=== PATIENT | male | born 1950 | race Caucasian/White ===

== ENCOUNTER 2023-12-10 08:50 | Day surgery (SDC) | payer MEDICARE, OTHER, SELFPAY ==
[2023-12-10] VITALS (14 sets, daily range): BP systolic 112–146; BP diastolic 75–94; BMI 28.5
[2023-12-10] MEDS: NSS 1000 IV ×2 (10:16→14:41)
--- NOTE | 2023-12-10 11:30 | ITS.CL.CATH ---
[employer] - Catheterization
Cardiac Catheterization
Procedure Report:
CARDIAC CATHETERIZATION REPORT
Date of Procedure: 12/10/2023
Referring: Wilman Amato M.D.
Indication: Aortic valve stenosis.
PROCEDURE:
1. Right heart catheterization.
2. Left heart catheterization.
3. Coronary angiography.
4. Aortic valve interrogation.
ACCESS:
6 [place] right radial artery.
5 [place] right antecubital vein.
CATHETERS:
1. 5 [place] balloon wedge.
2. 5 [place] JL 3.5.
3. 5 [place] JR4.
4. 6 [place] Dexter dual-lumen pigtail catheter.
HEMODYNAMIC DATA
Weight (kg): 89.8
AO (s/d/x mmHg): 125/83/102
LV (s/x mmHg): 170/15 (A wave to 27)
PCWP (a/v/x mmHg): 19/17/16
PA (s/d/x mmHg): 39/18/25
RV (s/x mmHg): 39/12
RA (a/v/x mmHg): 14//
SVC SvO2 (%): 80.6
PA SvO2 (%): 76.4
SaO2 (%): 96.3
Hbg (g/dL): 13.2
CO (L/min): 6.62
CI (L/min/m2): 3.18
TPG (mmHg): 9
PVR (Alonzo Units): 1.36
SVR (dynes*seconds*cm^-5): 1088
AVO2 Diff (Volume %): 3.57
AV gradient (x, mmHg): 32.3
AV area (cm2): 1.19
LEFT VENTRICULOGRAPHY: Not performed.
CORONARY ANGIOGRAPHY
Dominance: Right.
Left Main: Normal size, bifurcating vessel. There is no coronary artery disease.
LAD: Normal size vessel giving rise to 1 significant diagonal. There is no coronary artery disease.
Ramus: Congenitally absent.
Circumflex: Large size, nondominant vessel giving rise to 1 significant obtuse marginal then terminating as a large left posterolateral branch. There is no coronary artery disease.
RCA: Normal size, dominant vessel. There is no coronary artery disease. Of note, there is no posterolateral branch, the vessel terminates as the RPDA.
INTERVENTIONS
None.
Closure Device: Vascular band.
Radiation dose (mGy): 336.08
DAP (cm2.Gy): 23.1320
Fluoroscopy time (minutes): 4.1
Sedation time (minutes): 17
CONCLUSIONS:
1. Right dominant circulation with no coronary artery disease.
2. Moderate aortic valve stenosis. Aortic valve area 1.19 cm� with a mean gradient of 32.3 mmHg. Stroke-volume = 95 mL, stroke-volume index = 45 mL/m�.
3. Mildly elevated filling pressures (LVEDP = 15 mmHg, PCWP = 16 mmHg at 89.8 kg) with evidence of diastolic dysfunction (A wave to 27 mmHg).
RECOMMENDATIONS:
1. Expectant management after cardiac catheterization via right radial/right antecubital approach.
2. Limited weight bearing on the right wrist for one week.
3. Discussion with primary cardiology and TAVR team regarding continued surveillance versus aortic valve replacement due to symptoms.
4. Start low-dose furosemide for mildly elevated filling pressures.
Copy to: Wilman Amato M.D., Jennifer Valdez PA-C
Som Galindo DO, FACC, FACP
== END 2023-12-10 15:00 | disposition home or self-care (01) ==
LOC: CATH 08:50
PROVIDERS: ATTENDING PHYSICIAN Internal Medicine Cardiovascular Disease; FAMILY PHYSICIAN Physician Assistant Medical; OTHER PHYSICIAN Internal Medicine Cardiovascular Disease
DX: I35.0 Nonrheumatic aortic (valve) stenosis (principal); Z79.82 Long term (current) use of aspirin
CPT/HCPCS: 93460; C1894; Q9967

== ENCOUNTER → 2024-07-28 11:14 | Outpatient (REF) | payer MEDICARE, OTHER, SELFPAY | LOC: HWRCS 11:14 | PROVIDERS: ATTENDING PHYSICIAN Internal Medicine Cardiovascular Disease; FAMILY PHYSICIAN Physician Assistant Medical | DX: Q23.1 Congenital insufficiency of aortic valve (principal) | CPT/HCPCS: 93306 ==

== ENCOUNTER → 2025-01-21 13:51 | Outpatient (REF) | payer MEDICARE, OTHER, SELFPAY | LOC: HWRCS 13:51 | PROVIDERS: ATTENDING PHYSICIAN Student in an Organized Health Care Education/Training Program; FAMILY PHYSICIAN Physician Assistant Medical | DX: Q23.1 Congenital insufficiency of aortic valve (principal); I35.0 Nonrheumatic aortic (valve) stenosis; E78.2 Mixed hyperlipidemia | CPT/HCPCS: 93306 ==

== ENCOUNTER → 2025-02-10 12:39 | Outpatient (REF) | payer MEDICARE, OTHER, SELFPAY | LOC: RAD 12:39 | PROVIDERS: ATTENDING PHYSICIAN Thoracic Surgery (Cardiothoracic Vascular Surgery); FAMILY PHYSICIAN Physician Assistant Medical | DX: Z01.810 Encounter for preprocedural cardiovascular examination (principal) | CPT/HCPCS: 74174; 75572; Q9967 ==

== ENCOUNTER 2025-03-02 05:34 | Inpatient (IN) | payer MEDICARE, OTHER, SELFPAY ==
[2025-02-24 08:20] VITALS: BMI 30.2
[2025-02-24 08:53] LABS: % Basophils 0.7 % (0-2); % Eosinophils 5.6 % (0-6); % Immature Granulocytes 0.2 % (0-0.5); % Lymphocytes 19.7 % (20.5-51.1); % Monocytes 12.1 % (1.7-9.3); % Neutrophils 61.7 % (42.2-75.2); Absolute Eosinophils 0.2 10^3/uL (0-0.7); Absolute Lymphocytes 0.8 10^3/uL (1.2-3.4); Absolute Monocytes 0.5 10^3/uL (0.1-0.6); Absolute Neutrophils 2.5 10^3/uL (1.4-6.5); Hematocrit 35.4 % (39.0-52.0); Hemoglobin 11.7 g/dL (13.0-18.0); Mean Corp Hgb Conc. 33.1 g/dL (33.0-37.0); Mean Corpuscular Hgb 29.8 pg (27.0-31.0); Mean Corpuscular Volume 90.1 fL (80.0-94.0); Mean Platelet Volume 10.1 fL (7.4-10.4); Nucleated Red Blood Cells % 0 % (-); Platelet Count 240 10^3/uL (130-400); Red Blood Cell Count 3.93 10^6/uL (4.70-6.10); White Blood Cell Count 4.1 10^3/uL (4.8-10.8)
[2025-02-24 08:57] LABS: Urine Albumin Negative (Neg - Trace); Urine Bilirubin Negative (Negative); Urine Character Clear (Clear); Urine Color Yellow; Urine Glucose Negative (Negative); Urine Ketone Negative (Negative); Urine Leukocyte Negative (Negative); Urine Nitrite Negative (Negative); Urine Occult Blood 3+ (Negative); Urine Urobilinogen Negative (Neg - 1+)
[2025-02-24 09:12] LABS: Urine Bacteria Few (Negative); Urine Squamous Cell 0-2 /LPF (Few); Urine White Cell 0-2 /HPF (0-5)
[2025-02-24 09:12] LABS: APTT 31.2 Sec (23.4-35.0); INR 0.91; PT 12.8 Sec (11.4-14.6)
[2025-02-24 10:37] LABS: Glycohemoglobin (HgbA1c) 5.6 % (4.0-5.6)
[2025-02-24 11:37] LABS: ALT (SGPT) 13 U/L (0-50); AST (SGOT) 20 U/L (17-59); Albumin 4.1 g/dl (3.5-5.0); Alkaline Phosphatase 66 U/L (38-126); Blood Urea Nitrogen 20 mg/dl (9-20); Calcium 9.2 mg/dl (8.4-10.2); Carbon Dioxide 23 mmol/L (22-30); Chloride 106 mmol/L (98-107); Direct Bilirubin 0.2 mg/dl (0.0-0.4); Estimated Creatinine Clearance 69 ml/min; Glucose 97 mg/dl (70-99); Potassium 4.7 mmol/L (3.5-5.1); Sodium 139 mmol/L (135-145); Total Bilirubin 0.6 mg/dl (0.2-1.3); Total Protein 6.7 g/dl (6.3-8.2); eGFR > 60.00
--- NOTE | 2025-02-24 14:41 | CM ---
spoke to pt and in PAT's, we discussed preop AVR teaching including sternal and driving restrictions. he is prev indep, lives with his in a 1 story home with 1 step to enter. he has a walker at home to use if needed. he has the CT surgery
educ book, soap and instructions. he is agreeable to a f/u visit from the ct transitional care nurse after dc. cm role explained and all questions answered. plan is for dc to home when medically stable.
[2025-03-02] VITALS (16 sets, daily range): BP systolic 85–141; BP diastolic 67–92; BMI 28.4
--- NOTE | 2025-03-02 06:00 | PTCARENOTE ---
pt admitted into CVICU room 2264. pt confirmed 2 showers at home. NPO since midnight. pt clipped and prepped for CVOR. pre-op education provided. pre-op meds administered. pt science consultant to CVOR.
--- NOTE | 2025-03-02 06:02 | W.CVOR.SURPR ---
CVOR Surgeon Immed Pre Op
-
I have examined this patient prior to performance of the scheduled procedure.
The patient's condition is unchanged from the time of the dictated/written History and
Physical and the patient is able to undergo the scheduled procedure.
AVR (biological) +/- TONE CLip
[2025-03-02] MEDS: LOPRESSOR 25 MG PO (06:07)
[2025-03-02] MEDS: PROTONIX 40 MG PO (06:07)
[2025-03-02] MEDS: MAGNESIUM OXIDE 500 MG PO (06:07)
[2025-03-02] MEDS: BACTROBAN 2% OINTMENT 1 APPLIC NASAL ×2 (06:16→19:40)
[2025-03-02 07:31] LABS: ACT+ - POC 101 Seconds (82-134)
[2025-03-02 07:41] LABS: Urine Albumin 1+ (Neg - Trace); Urine Bilirubin Negative (Negative); Urine Character Clear (Clear); Urine Color Yellow; Urine Glucose Negative (Negative); Urine Ketone Negative (Negative); Urine Leukocyte Negative (Negative); Urine Nitrite Negative (Negative); Urine Occult Blood 3+ (Negative); Urine Urobilinogen Negative (Neg - 1+)
--- NOTE | 2025-03-02 08:12 | W.PN.CD ---
Today's Communication / Plan
-
SAVR + LAAE today.
Impression / Plan
-
Impression/Plan: 74 y/o male with a history bladder CA, HLD and bicuspid aortic valve with severe aortic valve stenosis admitted for elective SAVR.
#Bicuspid aortic valve with severe
-Chronic, progressive.
-Mean gradient 40 mmHg.
-Currently in surgery for bioprosthetic AVR.
-Anticipate routine post operative care.
-Wean vent to extubation.
-Wean pressors/inotropes for a MAP > 65 mmHg, CI > 1.8 L/min/m2.
#HLD
-Chronic, stable.
-Resume simvastatin when appropriate.
#SHIRA
-Chronic.
-<50% stenosis on the left.
Subjective/Interval History:
Currently undergoing surgery.
DATA:
Transthoracic Echocardiogram, 01/21/2025:
CONCLUSIONS
Normal biventricular size and systolic function without regional wall motion
abnormality. LVEF 65-70%.
Mild concentric left ventricular hypertrophy.
Severe aortic stenosis (peak/mean gradient 65/40 mmHg, TAISHA 0.9 cm2, DVI 0.26).
Compared to prior echocardiogram in July 2024, aortic stenosis has
progressed to severe.
Cardiac Catheterization, 12/10/2023:
CONCLUSIONS:
1. Right dominant circulation with no coronary artery disease.
2. Moderate aortic valve stenosis. Aortic valve area 1.19 cm� with a mean gradient of 32.3 mmHg. Stroke-volume = 95 mL, stroke-volume index = 45 mL/m�.
3. Mildly elevated filling pressures (LVEDP = 15 mmHg, PCWP = 16 mmHg at 89.8 kg) with evidence of diastolic dysfunction (A wave to 27 mmHg).
Physical Exam
Vital Signs/Labs
Vital Signs
Temp Pulse Resp BP Pulse Ox
36.6 C 66 16 141/92 97
03/02/25 06:00 03/02/25 06:07 03/02/25 06:00 03/02/25 06:07 03/02/25 06:00
02/28/25 03/01/25 03/02/25
11:59 11:59 11:59
Actual Weight 88.4 kg
02/24/25 08:30
02/24/25 08:30
PT 12.8 Sec (11.4-14.6) 02/24/25 08:30
INR 0.91 02/24/25 08:30
APTT 31.2 Sec (23.4-35.0) 02/24/25 08:30
Physical Exam
Constitutional: No acute distress and Comfortable
EENT: Other (ET tube in place.)
Neuro/Psych: Other (Intubated, sedated.)
Data Reviewed
-
Date of Service: March 02, 2025
Medical Decision Making: Reviewed Test Results and Test Interpretation
EKG: Tracing Personally Visualized and interpreted and Report Reviewed by me
Echo: Report Reviewed by me
X-Ray/CT/US/MRI/NUC/PET: Image Personally Visualized and interpreted and Report Reviewed by me
Medical Tests (PFT, Pathology etc): Image Personally Visualized and interpreted and Report Reviewed by me
Labs: Labs Reviewed by me
[2025-03-02 08:29] LABS: ACT+ - POC 649 Seconds (82-134)
[2025-03-02 08:46] LABS: B.E. - POC -0.4 mmol/L; Glucose - POC 101 mg/dl (70-99); HCO3 - POC 25 mmol/L (21-28); Hematocrit - POC 35 % PCV (42-52); Hemodilution- POC No; Ionized Calcium - POC 1.13 mmol/L (1.15-1.33); Lactate - POC 0.38 mmol/L (0.36-0.75); O2 Saturation %Calculated-POC 99.9 % (94-98); PCO2 - POC 42 mmHg (35-48); PO2 - POC 286 mmHg (83-108); POC Comment PRE; Sodium - POC 144 mmol/L (136-145); Specimen Type - POC Arterial; pH - POC 7.38 (7.35-7.45)
[2025-03-02 09:01] LABS: ACT+ - POC 625 Seconds (82-134)
[2025-03-02 09:28] LABS: ACT+ - POC 506 Seconds (82-134)
[2025-03-02 09:51] LABS: B.E. - POC 0.7 mmol/L; Glucose - POC 162 mg/dl (70-99); HCO3 - POC 26 mmol/L (21-28); Hematocrit - POC 30 % PCV (42-52); Hemodilution- POC Yes; Hemoglobin Calculated - POC 10.4; Ionized Calcium - POC 1.04 mmol/L (1.15-1.33); Lactate - POC 0.97 mmol/L (0.36-0.75); O2 Saturation %Calculated-POC 99.4 % (94-98); PCO2 - POC 43 mmHg (35-48); PO2 - POC 161 mmHg (83-108); POC Comment WARM; Potassium - POC 6.2 mmol/L (3.5-5.1); Sodium - POC 140 mmol/L (136-145); Specimen Type - POC Arterial; pH - POC 7.39 (7.35-7.45)
[2025-03-02 09:56] LABS: ACT+ - POC 107 Seconds (82-134)
--- NOTE | 2025-03-02 10:31 | W.PN.CT.SURG ---
CT Surgery Operative Note
-
CARDIAC SURGERY OPERATIVE REPORT
Preoperative Diagnosis: Aortic valve stenosis with bicuspid valve morphology and bulky heavy calcification
Postoperative Diagnosis: Same
Procedure(s) Performed:
1. Minimally invasive sternotomy down to the third intercostal space
2. Left atrial appendage exclusion with a 35 mm device
3. Surgical aortic valve replacement [29 mm bovine pericardial tissue valve]
4. Placement of temporary atrial ventricular pacing wires
5. Transesophageal echocardiography
Date of Surgery: 03/02/2025
Comorbidities:
1. Bicuspid aortic valve, type I morphology with left right effusion, bulky calcification and severe aortic valve stenosis
2. History of bladder cancer status postresection and chemotherapy
3. Gout
4. Hyperlipidemia
5. History of skin cancer status post Mohs surgery
6. Glaucoma
7. Sinus bradycardia
Attending Surgeon: Tremaine Ramirez MD, MS
Scrub and Circulating RNs: Brigette Simon, JOSUE, Michael Isaac RN
Assistants: Stephanie Abel PA-C, (wheelchair van operator first responder, exposure, retraction, suction, wound closure under my direction)
Anesthesiology: Flakito Nova MD and Manan Michael CRNA
Nurse Practitioner Home Assessments: Chapo Miller CCP
Anesthesia: GETA
EBL: per perfusion records
Products: None
CPB Time: 70 minutes
Aortic Cross Clamp Time: 54 minutes
Indication(s) for Procedures: This is a 74-year-old male with severe aortic valve stenosis. He has bicuspid valve morphology with a type I fusion of the left right coronary cusp. He has become more fatigued while doing exercise but overall is in
excellent physical condition. Given his relatively young age, bicuspid valve morphology with heavy and bulky calcification, a multidisciplinary team setting review came to the consensus that he be better served with a surgical aortic valve
replacement.
Aortic Valve Description: Bicuspid valve, type I, fusion of left and right coronary cusps, heavy bulky calcification of the body of the leaflets with some infiltration towards the left right commissure at the fused raphae, left and right coronary
ostia the normal anatomic positions, the right coronary ostia was slightly closer to the right none commissure, so the valve was oriented in order to move the surgical post more towards the noncoronary cusp.
Findings: His left ventricular ejection fraction preoperatively 65% with no significant regional wall motion abnormalities. Of note his cardiac index started in the case was quite low in the low ones as he was in sinus bradycardia in the 30s at
that time with a very elevated SVR. Following surgery his EF was the same at 65% with no new regional wall motion abnormalities. LV contractions were symmetrical and concentric. His aortic valve was replaced with a 29 mm bioprosthesis using a
total of 14 nonpledgeted 2 Ethibond sutures placed circumferentially secured with core knots. There is no paravalvular leak and the mean gradient across this new valve was 6 mmHg. His left atrial appendage was verified to be free of any thrombus
or debris preoperatively and clipped flush to the base. His cardiac index following cardiopulmonary bypass was over 2.0, I did not require any blood products, he did not require any inotropic support, he was in an AV paced rhythm postoperatively.
Specimen(s): Aortic valve leaflet.
Prosthesis:
1. 29 mm Willis Inspiris Resilia aortic valve, serial #[id number]
2. 35 mm left atrial appendage clip, serial #[id number]
3. Absorbable sealant, serial # [id number]
4. Single 8-hole X plate, 16mm screws x 8
Description of Procedure: The patient was taken to the operating room. Their identity and procedure to be performed were verified and they were positioned supine on the operating table. Induction via general anesthesia with endotracheal intubation
was performed and central venous access and arterial monitoring were inserted. A preoperative transesophageal echocardiogram was performed to assess cardiac function and valvular function. The patient was then prepped and draped from chin to feet in
a sterile fashion. A preoperative time-out was performed with all members of the team present. A upper midline chest incision was performed along with mini sternotomy to the 3rd intercostal space with a bone T-'d off. The innominate vein was
isolated. Full heparinization was given (a total of 50,000 units). We created a pericardial well. The aortic cannulation site was chosen where it was soft, pliable, and free of calcium. Common femoral vein access was done under ultrasound guidance
using Seldinger technique with a 5 [place] sheath. Venous cannulation was done under DAVI guidance. The arterial cannula was inserted in the distal ascending aorta. The arterial cannula line had an appropriate bounce and correlating pressures with
test dosing. Next, a root vent/antegrade cannula was inserted into the ascending aorta. The ACT was confirmed to be over 400 and retrograde autologous priming was performed before commencing cardiopulmonary bypass. An LV vent was placed via the
right superior pulmonary vein. The pulmonary artery was away from the aorta to facilitate a clamp site and aortotomy. The aortic cross-clamp was applied after decreasing the flow on the bypass and mean arterial pressure. A total of 1.2L
initial dose of antegrade Del-Nido cardioplegia solution was given and planned for re-dosing every 75 minutes as necessary. There was rapid electro-mechanical arrest of the heart at 270 cc of cardioplegia. The left ventricle was observed for
distention on echocardiogram and manual palpation. Cold slush was placed into the pericardial well and cooled to 34 degrees centigrade. Once the heart was fully arrested a sponge stick was used in order to rotate the heart medially and a suction
was used to retract the pulmonary artery. The left atrial appendage was clipped flush to the base. At this point while the LV was exposed, a bipolar pacing wire was placed on the lateral wall.
Carbon dioxide was used to flood the field. We manually identified the location of the right coronary take off. An aortotomy was made approximately 2cm above the sinotubular junction. The location of both left and right coronary vessels were
visualized in the root.The leaflets were excised and sent for pathological assessment. The annulus was debrided of any calcium being mindful of the annulus and membranous septum. The root and left ventricular outflow tract were thoroughly irrigated
to remove any debris. A total of 14 non-pledgeted 2-0 ethibond annular sutures were placed [id number] circumferentially. These were brought through the sewing cuff of the prosthetic valve which as then parachuted into place. The left and right
coronary ostia were visualized and were unobstructed by the valve. A Cor-Knot device was used to secure the annular sutures. The valve was inspected and was well seated. The aortotomy was approximated with 4-0 prolene in two layers. De-airing
maneuvers were performed with temporary atrial pacing wires placed at the SVC right atrial junction underneath the aorta. The patient was placed in a Trendelenburg position and flows on bypass were lowered. The aortic cross clamp was removed and
flows were slowly brought back up. The aortotomy appeared hemostatic. Transesophageal echocardiography revealed no paravalvular leak and appropriate prosthetic function. Once de-airing was satisfactory, the LV and root vents were removed. After
verifying acceptable parameters, we initiated weaning from cardiopulmonary bypass. Once we were off cardiopulmonary bypass, the venous cannula was clamped and removed. A test dose of protamine was administered and the patient was monitored for any
adverse reaction before resuming protamine. Once half of the protamine dose was delivered, pump suckers were turned off and the systolic blood pressure was lowered for aortic decannulation. The aortic cannula was removed and pursestrings were tied
down. All cannulation sites were oversewn with a 4-0 prolene. The aortotomy suture line was inspected and hemostasis was confirmed. Mediastinal hemostasis was obtained. One 19Fr Maxim drain was placed within the pericardium. The sternum was
approximated with 2 #7 stainless steel wires, 1 #7 double stainless steel wire, and a single 8-hole X-plate with 8 x 16mm screws. Fascia was approximated with #1 vicryl suture. The subcutaneous, dermis and epidermis were closed in layers in a
running fashion. The femoral venous access site was closed with a large buttressed pursestring. The skin wound was cleansed and dressed.
All instrument, sponge, and needle counts were confirmed to be correct x 2 at the end of the operation. The patient was transferred to the cardiac intensive care unit in critical but stable condition.
I, Dr. Tremaine Ramirez, was present, scrubbed for, and performed all critical elements of this procedure.
Tremaine Ramirez MD, MS
Cardiothoracic Surgeon
[facility]
This operative dictation was created using the [employer] dictation system. Please excuse any grammatical, typographical, or 'sound alike' errors
[2025-03-02 10:32] LABS: B.E. - POC 2.2 mmol/L; Glucose - POC 98 mg/dl (70-99); HCO3 - POC 27 mmol/L (21-28); Hematocrit - POC 27 % PCV (42-52); Hemodilution- POC Yes; Hemoglobin Calculated - POC 9.3; Ionized Calcium - POC 1.22 mmol/L (1.15-1.33); Lactate - POC 1.06 mmol/L (0.36-0.75); O2 Saturation %Calculated-POC 99.9 % (94-98); PCO2 - POC 39 mmHg (35-48); PO2 - POC 302 mmHg (83-108); POC Comment POST; Potassium - POC 4.1 mmol/L (3.5-5.1); Sodium - POC 143 mmol/L (136-145); Specimen Type - POC Arterial; pH - POC 7.44 (7.35-7.45)
[2025-03-02] MEDS: NEURONTIN PO ×2 (10:43→16:35)
[2025-03-02 10:57] LABS: Glucose - Point of Care 76 mg/dl (70-99)
--- NOTE | 2025-03-02 11:09 | CM ---
Chart reviewed. Patient is in the OR today. Patient is independent of ADLS, lives with his in a 1 STH, 1STE, has a RW at home if needed. Plan is for the patient to return home with CT Transitional RN. CM to follow
[2025-03-02] MEDS: NSS 500 IV (11:18)
[2025-03-02] MEDS: ANCEF 10 IV ×2 (11:18)
[2025-03-02 11:21] LABS: Hematocrit 30.9 % (39.0-52.0); Hemoglobin 10.4 g/dL (13.0-18.0); INR 1.32; PT 16.9 Sec (11.4-14.6); Platelet Count 154 10^3/uL (130-400)
[2025-03-02 11:22] LABS: APTT 33.5 Sec (23.4-35.0)
[2025-03-02 11:30] LABS: Blood Urea Nitrogen 20 mg/dl (9-20); Estimated Creatinine Clearance 62 ml/min; Glucose 67 mg/dl (70-99); Magnesium 2.9 mg/dl (1.6-2.3)
[2025-03-02 11:35] LABS: Mixed Venous O2 Saturation 78.4 %
[2025-03-02 11:38] LABS: B.E. 1.3 mmol/L; HCO3 25.9 mmol/L (21-28); Ionized Calcium 1.23 mMOL/L (1.15-1.33); O2 Saturation % 99.1 % (94-98); PCO2 40 mmHg (35-48); PO2 131 mmHg (83-108); Potassium 4.2 mMOL/L (3.5-5.1); Sodium 138 mMOL/L (136-145); pH 7.42 (7.35-7.45)
[2025-03-02 11:44] LABS: Glucose - Point of Care 113 mg/dl (70-99)
--- NOTE | 2025-03-02 11:49 | PTCARENOTE ---
Patient received from CVOR at 1050; Sedated and intubated; 100% AV paced on monitor; VSS; Epicardial AV wires present with temporary pacemaker settings DDI 74/10/0.8 74/10/0.8; +2 DP and radial pulses present; Lungs diminished at bases; ETT size 8
positioned and secured at 22 cm right lip; Ventilator settings SIMV 14/550/5/5 FiO2 40%; CTx1 to -20 cm wall suction draining bloody drainage - no air leak, tidaling, or crepitus noted; Hypoactive BS; Saleh catheter in place draining clear, yellow
urine; Sternal incision glued, approximated, and PERICO - CDI, right groin puncture site covered with gauze and tegaderm - CDI; Right radial A-line in place, Michelle Lamberto floated to 45 cm in RIJ Cordis - all lines zeroed and leveled; #18 PIV present in
right hand; Insulin, precedex, and cardene infusing - see nursing flowsheets for further details; see nursing documentation for further details.
CO: 3.95
CI: 1.94
SVR: 1,255
[2025-03-02] MEDS: DILAUDID 0.25 MG IV (12:41)
[2025-03-02 12:49] LABS: Glucose - Point of Care 137 mg/dl (70-99)
[2025-03-02 12:50] LABS: B.E. - POC 1.8 mmol/L; Glucose - POC 122 mg/dl (70-99); HCO3 - POC 27 mmol/L (21-28); Hematocrit - POC 29 % PCV (42-52); Hemodilution- POC Yes; Ionized Calcium - POC 0.99 mmol/L (1.15-1.33); Lactate - POC < 0.30 mmol/L (0.36-0.75); PCO2 - POC 47 mmHg (35-48); PO2 - POC 422 mmHg (83-108); POC Comment CPB; Potassium - POC 5.3 mmol/L (3.5-5.1); Sodium - POC 139 mmol/L (136-145); Specimen Type - POC Arterial; pH - POC 7.38 (7.35-7.45)
--- NOTE | 2025-03-02 13:10 | PTCARENOTE ---
CPAP trial attempted at 1235 with RT at bedside but quickly returned to SIMV on ventilator due to high respiration rate and low tidal volume; CVNP Radha C. notified and aware - Precedex infusion increased and IV Dilaudid 0.25 given; Chest beating
strongly with each heart beat - CVNP Radha C. notified - most likely due to epicardial pacing and settings unchanged for now; Respiration rate still unchanged after medication changes - ABG ordered and awaiting results
[2025-03-02 13:13] LABS: B.E. 0.7 mmol/L; HCO3 24.2 mmol/L (21-28); Ionized Calcium 1.17 mMOL/L (1.15-1.33); O2 Saturation % 99.8 % (94-98); PCO2 34 mmHg (35-48); PO2 140 mmHg (83-108); Potassium 4.6 mMOL/L (3.5-5.1); Sodium 137 mMOL/L (136-145); pH 7.46 (7.35-7.45)
[2025-03-02] MEDS: CALCIUM GLUCONATE 100 IV (13:47)
--- NOTE | 2025-03-02 13:54 | PTCARENOTE ---
Temporary pacemaker settings changed to AAI 74/6.0/0.8 by DEYSI Santoro after temporary pacemaker noticed to inappropriately initiate breaths on ventilator by V-wire; EKG taken at bedside while pacemaker off while adjusting temporary pacemaker
settings; Respiration rate now appropriate at 14 and patient denies pain at this time
--- NOTE | 2025-03-02 13:58 | CON.INTV ---
Consultation
Consultation Request
Date/Time Consultation Requested: 03/02/2025
Date/Time Consultation Performed: 03/02/2025
Requesting Provider: Tremaine Ramirez
Performing Provider: Raul Harding
Reason for Consultation: Post AVR
Medical History
-
Chief Complaint: Worsening aortic valve stenosis
History of Present Illness:
Patient is a very pleasant 74-year-old gentleman with known history of aortic stenosis. He has been following up with cardiology office for worsening shortness of breath. He had a follow-up echocardiogram in January 2025 which showed worsening
aortic stenosis with peak/mean gradient of 65 x 40. Left ventricle ejection fraction was noted to be normal. Cardiac cath in the past had been negative for any obstructive coronary artery disease. In view of symptomatic worsening stenosis,
patient was referred to CT surgery service. Patient was recommended to have aortic valve replacement and was electively admitted for the above surgery. Postsurgery, he was brought to CVICU for further monitoring. Chinese Instructor service was consulted
for further input.
Past medical history.
History of bladder cancer, status post cystoscopy, and tumor resection as well as intravesical chemotherapy
History of bicuspid aortic valve with aortic valve stenosis
History of gout
History of basal cell carcinoma skin, s/p Mohs procedure
Known history of pulmonary nodules
Family history.
Patient's sister had melanoma Brother had history of lung cancer.
Social history.
Patient does not smoke. Reports a very brief exposure to smoking remotely during college times. No reported history of vaping or marijuana use.
Allergies / Home Medications
Allergies
Allergy/AdvReac Type Severity Reaction Status Date / Time
No Known Allergies Allergy Unverified 02/22/25 09:52
Home Medications
�Medication �Instructions �Recorded �Confirmed �Last Taken �Type
aspirin 81 mg chewable tablet 81 mg PO DAILY 12/10/23 03/02/25 03/01/25 08:00 History
bimatoprost 0.01 % eye drops 1 drp BOTH EYES HS 12/10/23 03/02/2525 20:00 History
(Lumigan)
indomethacin 50 mg capsule 50 mg PO TID PRN Gout Flare 12/10/23 03/02/25 02/28/25 History
simvastatin 20 mg tablet 20 mg PO HS 12/10/23 03/02/25 03/01/25 20:00 History
Review of Systems
-
Unable to Obtain full review of systems at this time due to: Patient Intubation and Other (Denies any difficulty breathing, not noted to be in any distress)
Vitals / Labs / Diagnostic Testing
Vital Signs
Temp Pulse Resp BP Pulse Ox
98.0 F 74 16 103/77 99
03/02/25 13:00 03/02/25 13:05 03/02/25 13:05 03/02/25 13:00 03/02/25 13:05
Lab Data
03/02/25 10:49
Laboratory Results
03/02/25 03/02/25
10:49 12:59
PT 16.9 H
INR 1.32
APTT 33.5
pH 7.42 7.46 H
pCO2 40 34 L
pO2 131 H 140 H
HCO3 25.9 24.2
O2 Delivery Level Not Reportable Not Reportable
Diagnostic Testing:
Physical Exam
-
HEENT: Normocephalic
Cardiovascular: S1/S2
Respiratory: Clear and Non-Labored Respirations
GI: Soft and Non Distended
Neurology: Awake and Alert
Skin: Warm
General: Comfortable
Assessment
-
74-year-old male patient with bicuspid aortic valve with severe aortic valve stenosis, s/p surgical aortic valve replacement (bovine pericardial tissue valve) with left atrial appendage exclusion, POD #0
Titrate off pressors per protocol. Currently Levophed @2
ECHO reviewed, normal EF
PA catheter readings reviewed
Management of chest tubes per primary service
Off Precedex now, awake, alert, follows commands, tolerating PSV/CPAP 5/5 well, Pulling tidal volume of 472 ml, 99% O2 sat at FiO2 40%
Anticipate extubation soon
7.46, 34, 140
Extubate per protocol
Maintain supplement oxygen as needed
No prior history of pulmonary disease other than nodules (stable since 2015)
Can add nebulizers if needed
Aspiration precautions
Encouraged incentive spirometry, OOB/ambulation/early mobility
Advance diet as tolerated following extubation
GI prophylaxis: on Protonix
Monitor critical I/O's
F/u Hb/platelets postoperatively
Can transfuse if indicated for Hb <7, plt <50 in surgical patients
DVT prophylaxis including SCDs
Insulin protocol initiated and ongoing, continue per protocol
Transition to SQ/off as indicated per team
Other co-morbidities:
-Pulmonary nodules (2-5 mm), Unchanged since CT Chest in 2016, suggestive of benign etiology. No further work up needed with stability over 7 years
-Bladder cancer s/p TUR of bladder tumor, intravesical chemotherapy (2012)
-Gout
-H/o Basal cell cancer, skin
Critical Care time 63 mins -- The patient is admitted for acute critical illness for the treatment of vital organ failure and/or prevention of further life-threatening conditions. Total care includes time spent in review of history, physical exam,
medications, hemodynamic/ventilator parameters, laboratory data, imaging and discussion with house staff, pharmacy, respiratory therapy, line mover, and nursing.
Data:
DAVI 02/2025: Normal left ventricular size and systolic function with concentric hypertrophy.
LVEF is 60-65% by visual inspection. No regional wall motion abnormalities.
Normal right ventricular systolic function.
Bicuspid aortic valve with severe stenosis and trace/mild regurgitation.
Trace mitral regurgitation.
Trace tricuspid regurgitation.
Normal left atrial appendage.
Normal size aorta and aortic root.
2-D ECHO 01/2025: Normal biventricular size and systolic function without regional wall motion
abnormality. LVEF 65-70%.
Mild concentric left ventricular hypertrophy.
Severe aortic stenosis (peak/mean gradient 65/40 mmHg, TAISHA 0.9 cm2, DVI 0.26).
Compared to prior echocardiogram in July 2024, aortic stenosis has
progressed to severe.
RHC and LHC 11/2024: Mean PA pressure 25, PVR 1.36, pulmonary capillary wedge pressure 16, aortic valve area of 1.19 cm� with mean gradient of 32.3.
- Right dominant circulation with no coronary artery disease
CT Chest 11/2023: Stable pulmonary nodules since 2015, suspect enign
CT Chest 10/2017: 4 mm right middle lobe nodule (image 38 series 2)
4 mm subpleural right lower lobe nodule (image 42)
2 mm subpleural left lower lobe nodule (image 37)
5 mm subpleural left lower lobe nodule (image 47). Nodules unchanged since 2016, suggestive of benign etiology
[2025-03-02 14:04] LABS: Glucose - Point of Care 150 mg/dl (70-99)
[2025-03-02] MEDS: TYLENOL PO (14:07)
[2025-03-02] MEDS: LR 250 ML IV ×3 (14:32→17:14)
--- NOTE | 2025-03-02 14:50 | PTCARENOTE ---
RT in room and patient placed on CPAP trial. EPOC ABG due at 1520
[2025-03-02 15:05] LABS: Glucose - Point of Care 160 mg/dl (70-99)
[2025-03-02 15:27] LABS: Blood Urea Nitrogen - POC 20 mg/dl (3-120); Chloride - POC 108 mmol/L (96-111); Creatinine - POC 1.14 mg/dl (0.3-1.0); Glucose - POC 134 mg/dl (70-99); HCO3 - POC 25 mmol/L (21-28); Hematocrit - POC 35 % PCV (42-52); Hemodilution- POC Yes; Hemoglobin Calculated - POC 11.8; Ionized Calcium - POC 1.29 mmol/L (1.15-1.33); Lactate - POC 1.47 mmol/L (0.36-0.75); O2 Saturation %Calculated-POC 99.6 % (94-98); PCO2 - POC 39 mmHg (35-48); PO2 - POC 172 mmHg (83-108); Potassium - POC 4.4 mmol/L (3.5-5.1); Sodium - POC 145 mmol/L (136-145); Specimen Type - POC Arterial; pH - POC 7.42 (7.35-7.45)
--- NOTE | 2025-03-02 15:36 | PTCARENOTE ---
EPOC ABG reviewed with DEYSI Santoro; RT at bedside; Patient extubated at 1530 and placed on 6L NC; IS 1500 ml
--- NOTE | 2025-03-02 15:45 | RESPNOTE ---
Respiratory: patient extubated without incident, no stridor no wheeze.
[2025-03-02 15:59] LABS: Glucose - Point of Care 133 mg/dl (70-99)
[2025-03-02 16:05] LABS: Hematocrit 33.5 % (39.0-52.0); Hemoglobin 11.1 g/dL (13.0-18.0); Platelet Count 193 10^3/uL (130-400)
[2025-03-02] MEDS: OFIRMEV 100 IV (16:32)
[2025-03-02] MEDS: PACERONE PO ×3 (16:35→21:08)
[2025-03-02] MEDS: LOW STRENGTH ASPIRIN 81 MG PO (16:37)
[2025-03-02 18:04] LABS: Glucose - Point of Care 110 mg/dl (70-99)
[2025-03-02] MEDS: ANCEF 5 IV (18:05)
[2025-03-02] MEDS: ALBUMIN 5% 250 IV (18:38)
[2025-03-02 18:44] LABS: B.E. -0.5 mmol/L; HCO3 24.2 mmol/L (21-28); Ionized Calcium 1.23 mMOL/L (1.15-1.33); O2 Saturation % 99.7 % (94-98); PCO2 39 mmHg (35-48); PO2 179 mmHg (83-108); Potassium 4.7 mMOL/L (3.5-5.1); Sodium 137 mMOL/L (136-145)
[2025-03-02 18:45] LABS: O2 Therapy nasal cannula
[2025-03-02] MEDS: SENOKOT-S 1 TABLET PO (20:06)
[2025-03-02 20:10] LABS: Glucose - Point of Care 108 mg/dl (70-99)
[2025-03-02] MEDS: XALATAN OPHTHALMIC SOLUTION 1 DROP BOTH EYES (21:01)
[2025-03-02] MEDS: NEURONTIN 100 MG PO (21:01)
[2025-03-02] MEDS: LIPITOR 10 MG PO (21:02)
--- NOTE | 2025-03-02 21:42 | PTCARENOTE ---
Patient tolerated clear liquid diet; PO Amiodarone held as per CVPA Tsillina; Levo infusion being weaned - see nursing flowsheets for further details
[2025-03-02] MEDS: TYLENOL 1000 MG PO (21:58)
[2025-03-02] MEDS: LR 500 IV (21:59)
[2025-03-02 22:03] LABS: Glucose - Point of Care 121 mg/dl (70-99)
--- NOTE | 2025-03-02 23:15 | PTCARENOTE ---
Assumed care of the patient at 2300. Patient in bed, AOx3, c/o mild sternal pain. 100% A-paced on the monitor, rate 74, see work list for pacer settings, heart tones audible, rub noted, + pulses, no edema, pressures stable on Levophed. On 2LNC
satting 98%, CTx1 present to -20 cm wall suction with sanguineous drainage in the chamber, no air leak, tidaling, or crepitus noted, lungs dim at the bases. Hypoactive BS, patient states he is passing gas, tolerating clear liquid diet with no
nausea. Saleh catheter in place draining clear, yellow urine. MS chest incision CDI BARIATRIC PROGRAM COORDINATOR; R groin dressing with gauze and Tegaderm CDI no drainage noted. RIJ Michelle Lamberto catheter @[address], RIJ cordis, R radial arterial line, PIVx1. All lines
leveled and zeroed. On Levo and insulin. See nursing work list for additional intervention details.
[2025-03-03] VITALS (27 sets, daily range): BP systolic 80–112; BP diastolic 53–84; PULSE 81; O2SAT 93; BMI 29.9
[2025-03-03 00:07] LABS: Glucose - Point of Care 103 mg/dl (70-99)
[2025-03-03 01:56] LABS: Glucose - Point of Care 97 mg/dl (70-99)
[2025-03-03] MEDS: ROXICODONE 5 MG PO ×3 (01:56→15:14)
[2025-03-03] MEDS: ANCEF 5 IV ×2 (01:56→10:00)
--- NOTE | 2025-03-03 03:00 | PTCARENOTE ---
VSS on Levophed titrated per protocol, pain management. Patient sleeping between care.
[2025-03-03 04:01] LABS: Glucose - Point of Care 101 mg/dl (70-99)
[2025-03-03 04:19] LABS: Mixed Venous O2 Saturation 62.5 %
[2025-03-03 04:37] LABS: Hematocrit 30.4 % (39.0-52.0); Hemoglobin 9.9 g/dL (13.0-18.0); Mean Corp Hgb Conc. 32.6 g/dL (33.0-37.0); Mean Corpuscular Hgb 29.3 pg (27.0-31.0); Mean Corpuscular Volume 89.9 fL (80.0-94.0); Mean Platelet Volume 10.9 fL (7.4-10.4); Platelet Count 190 10^3/uL (130-400); Red Blood Cell Count 3.38 10^6/uL (4.70-6.10); Red Cell Dist. Width 13.2 % (11.5-14.5); White Blood Cell Count 14.3 10^3/uL (4.8-10.8)
[2025-03-03 04:57] LABS: Blood Urea Nitrogen 24 mg/dl (9-20); Calcium 8.4 mg/dl (8.4-10.2); Carbon Dioxide 21 mmol/L (22-30); Chloride 106 mmol/L (98-107); Estimated Creatinine Clearance 62 ml/min; Glucose 111 mg/dl (70-99); Magnesium 2.3 mg/dl (1.6-2.3); Potassium 4.9 mmol/L (3.5-5.1); Sodium 138 mmol/L (135-145); eGFR > 60.00
--- NOTE | 2025-03-03 05:36 | W.PN.CT ---
Today's Communication / Plan
-
-pod #1
-no issues overnight
-keeping BP 90-110 overnight
-mvO2 62.5. CI 2.08, CO 4.24, SVR 1207, Drips: LR @ 50 ml/hr, Insulin, Levo 1
-CT outputs: 2 meds 60/235 in 12/24 hrs
-monitor rhythm - was AV paced itraop and sinus merry 49 postop (preop ECG with SB 50, not on AV-blocking meds at home). Currently, in nsr 70s
-wean off drips, then deline
-d/c insulin
-current meds (ASA, Lipitor, Amio, Protonix). Holding BB while on Levo
-encourage IS, OOB
Assessment / Plan
-
- s/p Minimally invasive sternotomy with Surgical aortic valve replacement [29 mm bovine pericardial tissue valve Inspiris Resilia]; LAAE [35 mm clip] by Dr. Ramirez on 03/02/25, pod #1
- intraop DAVI: LVEF preop and postop 65% with no wma.
- he was in an AV paced rhythm postoperatively, then sinus merry high 40s in CVICU
- Bicuspid aortic valve, type I morphology with left right effusion, bulky calcification and severe aortic valve stenosis
- History of bladder cancer- status postresection and chemotherapy 11/2012
- Pulmonary nodules
- Gout
- Hyperlipidemia
- History of skin cancer status post Mohs surgery
- Glaucoma
- Hard of hearing, wears hearing aides b/l
- Preop anemia - Hg 11.7
- Sinus bradycardia 50 bpm preop (not on AVN blocking meds at home)
- Acute on chronic postop blood loss anemia
- Acute postop atelectasis
- Acute postop hypovolemia with subsequnet hypervolemia
Discussed patient care with: Nursing and Care Team
Subjective
-
Date of Service: March 03, 2025
Objective Data
-
PT 16.9 Sec (11.4-14.6) H 03/02/25 10:49
INR 1.32 03/02/25 10:49
APTT 33.5 Sec (23.4-35.0) 03/02/25 10:49
Vital Signs
Vital Signs
Temp Pulse Resp BP Pulse Ox
97.5 F 74 11 95/76 98
03/03/25 00:00 03/03/25 00:12 03/03/25 00:12 03/03/25 00:00 03/03/25 00:12
CT Intake/Output/Weight
03/02/25 03/02/25 03/03/25
06:59 18:59 06:59
Intake Total 1709.6 / 2611.0 901.4 / 2611.0
Output Total 1685 / 1920 235 / 1920
Balance 24.6 / 691.0 666.4 / 691.0
SaO2: 98
Physical Exam
-
General: Awake and AOx3
Cardiovascular: Regular rate & rhythm, No Murmurs and Rub
Respiratory: Decreased Breath Sounds
Sternum: Stable
Incision: Clean, Dry and Intact
Extremities: No Edema (2+ DPs b/l)
Abdomen: soft, nontender, nondistended, + decreased bowel sounds
Data Reviewed
-
Lab Results: Results Reviewed
Medications: Active Meds Reviewed
Chest X-Ray: Report Reviewed and Image Reviewed
ECG: Report Reviewed and Image Reviewed
[2025-03-03] MEDS: TYLENOL 1000 MG PO ×3 (05:46→21:33)
[2025-03-03] MEDS: LR 500 IV ×2 (05:47→21:35)
[2025-03-03 06:08] LABS: Glucose - Point of Care 110 mg/dl (70-99)
--- NOTE | 2025-03-03 06:22 | PTCARENOTE ---
Patient remains lined per CVPA. Kept in bed due to low pressures and weighed via bed scale. Saleh removed per order, catheter intact, patient tolerated procedure. at bedside, no questions indicated at this time.
[2025-03-03] MEDS: DILAUDID 0.5 MG IV (07:13)
[2025-03-03] MEDS: BACTROBAN 2% OINTMENT 1 APPLIC NASAL ×2 (07:54→20:20)
--- NOTE | 2025-03-03 08:00 | PTCARENOTE ---
resumed care of patient from previous RN. AAOx3. Resting comfortably in bed at time of assessment. NSR on monitor. 97% 2L nc. Will wean as tolerated. CTx1 to -20 wall suction. draining minimal serosang fluid. dressing changed. IS 1500. Delined and
OOB with assist from cardiac rehab. Light headed but tolerated. tolerating diet. DTV. All surgical sites c/d/i. R IJ cordis.LR infusing @ 50/hr. insulin per glycemic protocol. will continue to monitor.
--- NOTE | 2025-03-03 08:11 | W.PN.ANS.POP ---
Anesthesia Post Operative
- Anesthesia Post Op Note
Vital Signs Stable-See Nursing Note: Yes
Airway Patent: Yes
Adequate Pain Control: Yes
Change in Mental Status: No
Current Postoperative Nausea & Vomiting: No
Anesthesia Complications: No
General Anesthetic Recall: No
Unplanned Admission: No
Post Op Hydration Adequate: Yes
- -
Pt awake and alert with no anesthesia related c/o at time of post op visit. VSS, no N/V
--- NOTE | 2025-03-03 08:48 | W.PN.CD ---
Today's Communication / Plan
-
Continue routine postop care
Wean pressors as tolerated
We will continue to follow
Impression / Plan
-
Impression/Plan: 74 y/o male with a history bladder CA, HLD and bicuspid aortic valve with severe aortic valve stenosis admitted for elective SAVR. S/p Minimally invasive sternotomy with Surgical aortic valve replacement [29 mm bovine pericardial
tissue valve Inspiris Resilia]; LAAE [35 mm clip] by Dr. Ramirez on 03/02/25
#Bicuspid aortic valve with severe
-S/p Minimally invasive sternotomy with Surgical aortic valve replacement [29 mm bovine pericardial tissue valve Inspiris Resilia]; LAAE [35 mm clip] by Dr. Ramirez on 03/02/25
-Postop DAVI with AVR mean gradient 3mm Hg, LAAA no longer visible with no color flow
-Continue routine post operative care.
-Amio for AF prophylaxis
-Wean pressors/inotropes for a MAP > 65 mmHg, CI > 1.8 L/min/m2.
#HLD
-Chronic, stable.
-Continue statin and ASA
#SHIRA
-Chronic.
-<50% stenosis on the left.
Subjective/Interval History:
Has postop pain this morning but otherwise feels well. Telemetry with normal sinus rhythm. No longer using pacing wires. Sill on Levo 3.
DATA:
Transthoracic Echocardiogram, 01/21/2025:
CONCLUSIONS
Normal biventricular size and systolic function without regional wall motion
abnormality. LVEF 65-70%.
Mild concentric left ventricular hypertrophy.
Severe aortic stenosis (peak/mean gradient 65/40 mmHg, TAISHA 0.9 cm2, DVI 0.26).
Compared to prior echocardiogram in July 2024, aortic stenosis has
progressed to severe.
Cardiac Catheterization, 12/10/2023:
CONCLUSIONS:
1. Right dominant circulation with no coronary artery disease.
2. Moderate aortic valve stenosis. Aortic valve area 1.19 cm� with a mean gradient of 32.3 mmHg. Stroke-volume = 95 mL, stroke-volume index = 45 mL/m�.
3. Mildly elevated filling pressures (LVEDP = 15 mmHg, PCWP = 16 mmHg at 89.8 kg) with evidence of diastolic dysfunction (A wave to 27 mmHg).
Physical Exam
Vital Signs/Labs
Vital Signs
Temp Pulse Resp BP Pulse Ox
99.1 F 75 16 98/58 97
03/03/25 07:51 03/03/25 07:51 03/03/25 07:51 03/03/25 07:00 03/03/25 07:51
03/02/25 03/03/25 03/04/25
06:59 06:59 06:59
Actual Weight 194 lb 14.218 oz 205 lb 0.478 oz
03/03/25 04:00
03/03/25 04:00
PT 16.9 Sec (11.4-14.6) H 03/02/25 10:49
INR 1.32 03/02/25 10:49
APTT 33.5 Sec (23.4-35.0) 03/02/25 10:49
Magnesium 2.3 mg/dl (1.6-2.3) 03/03/25 04:00
Physical Exam
Constitutional: No acute distress and Comfortable
Cardiovascular: Rhythm & rate is regular, Pedal edema is absent, S1S2 is normal and Murmur/rub/gallop absent
Respiratory: Respiratory effort normal and Lungs clear to auscul.
Neuro/Psych: AO x 3
Other: Other (Incision site looks clean, nonerythematous and non-purulent)
Data Reviewed
-
Date of Service: March 03, 2025
Medical Decision Making: Reviewed Test Results, Independent Historian Assessment, Test Interpretation and Review of Case with other Provider
EKG: Tracing Personally Visualized and interpreted
Echo: Report Reviewed by me
X-Ray/CT/US/MRI/NUC/PET: Report Reviewed by me
Labs: Labs Reviewed by me
[2025-03-03 09:08] LABS: Glucose - Point of Care 86 mg/dl (70-99)
[2025-03-03] MEDS: MAGNESIUM OXIDE 500 MG PO ×2 (09:58→20:20)
[2025-03-03] MEDS: LIDOCAINE 4% PATCH TOPICAL (09:58)
[2025-03-03] MEDS: PROTONIX 40 MG PO (09:59)
[2025-03-03] MEDS: NEURONTIN 100 MG PO ×3 (09:59→21:33)
[2025-03-03] MEDS: PACERONE 200 MG PO ×3 (09:59→21:34)
[2025-03-03] MEDS: LOW STRENGTH ASPIRIN 81 MG PO (09:59)
[2025-03-03] MEDS: SENOKOT-S 1 TABLET PO ×2 (10:00→20:20)
[2025-03-03] MEDS: NSS IV (10:00)
[2025-03-03 10:41] LABS: Glucose - Point of Care 97 mg/dl (70-99)
--- NOTE | 2025-03-03 10:51 | CM ---
Chart reviewed. Patient OOB sitting in the chair, at bedside. Patient is independent of ADLS, lives with his in a [address], 1 [facility], has a RW at home if needed. Plan is for the patient to return home with CT Transitional RN. CM to follow
--- NOTE | 2025-03-03 12:53 | W.PN.INTV ---
Today's Communication / Plan
Recommendations
- Incentive spirometry
- If patient transferred out of CVICU, channel machine operator service will sign off.
Assessment
-
Patient is a very pleasant 74-year-old gentleman with known history of aortic stenosis. He has been following up with cardiology office for worsening shortness of breath. He had a follow-up echocardiogram in January 2025 which showed worsening
aortic stenosis with peak/mean gradient of 65 x 40. Left ventricle ejection fraction was noted to be normal. Cardiac cath in the past had been negative for any obstructive coronary artery disease. In view of symptomatic worsening stenosis,
patient was referred to CT surgery service. Patient was recommended to have aortic valve replacement and was electively admitted for the above surgery. Postsurgery, he was brought to CVICU for further monitoring. Machine Sign Writer service was consulted
for further input.
74-year-old male patient with bicuspid aortic valve with severe aortic valve stenosis, s/p surgical aortic valve replacement (bovine pericardial tissue valve) with left atrial appendage exclusion, POD #1
Off all pressors
ECHO reviewed, normal EF
PA catheter removed
Management of chest tubes per primary service
Patient extubated, doing well on supplemental oxygen.
Maintain supplement oxygen as needed
No prior history of pulmonary disease other than nodules (stable since 2015)
Can add nebulizers if needed
Aspiration precautions
Encouraged incentive spirometry, OOB/ambulation/early mobility
Advance diet as tolerated following extubation
GI prophylaxis: on Protonix
Monitor critical I/O's
F/u Hb/platelets postoperatively
Can transfuse if indicated for Hb <7, plt <50 in surgical patients
DVT prophylaxis including SCDs
Insulin protocol initiated and ongoing, continue per protocol
Transition to SQ/off as indicated per team
Other co-morbidities:
-Pulmonary nodules (2-5 mm), Unchanged since CT Chest in 2016, suggestive of benign etiology. No further work up needed with stability over 7 years
-Bladder cancer s/p TUR of bladder tumor, intravesical chemotherapy (2012)
-Gout
-H/o Basal cell cancer, skin
Critical Care time 45 mins -- The patient is admitted for acute critical illness for the treatment of vital organ failure and/or prevention of further life-threatening conditions. Total care includes time spent in review of history, physical exam,
medications, hemodynamic/ventilator parameters, laboratory data, imaging and discussion with house staff, pharmacy, respiratory therapy, supervisor blast furnace auxiliaries, and nursing.
Data:
DAVI 02/2025: Normal left ventricular size and systolic function with concentric hypertrophy.
LVEF is 60-65% by visual inspection. No regional wall motion abnormalities.
Normal right ventricular systolic function.
Bicuspid aortic valve with severe stenosis and trace/mild regurgitation.
Trace mitral regurgitation.
Trace tricuspid regurgitation.
Normal left atrial appendage.
Normal size aorta and aortic root.
2-D ECHO 01/2025: Normal biventricular size and systolic function without regional wall motion
abnormality. LVEF 65-70%.
Mild concentric left ventricular hypertrophy.
Severe aortic stenosis (peak/mean gradient 65/40 mmHg, TAISHA 0.9 cm2, DVI 0.26).
Compared to prior echocardiogram in July 2024, aortic stenosis has
progressed to severe.
RHC and LHC 11/2024: Mean PA pressure 25, PVR 1.36, pulmonary capillary wedge pressure 16, aortic valve area of 1.19 cm� with mean gradient of 32.3.
- Right dominant circulation with no coronary artery disease
CT Chest 11/2023: Stable pulmonary nodules since 2015, suspect enign
CT Chest 10/2017: 4 mm right middle lobe nodule (image 38 series 2)
4 mm subpleural right lower lobe nodule (image 42)
2 mm subpleural left lower lobe nodule (image 37)
5 mm subpleural left lower lobe nodule (image 47). Nodules unchanged since 2015, suggestive of benign etiology
Subjective Dataa
Subjective Data
Date of Service:
Date of Service: March 03, 2025
Subjective:
Patient comfortably sitting in chair, in no acute distress.
Review of Systems
Genitourinary: Other (All 14 systems reviewed and negative except as stated above in the history of present illness.)
Objective Data
Data Reviewed
Vital Signs / I&O / Oxygen:
Vital Signs
Temp Pulse Resp BP Pulse Ox
99.0 F 80 23 91/67 91
03/03/25 09:00 03/03/25 10:40 03/03/25 10:40 03/03/25 10:15 03/03/25 10:00
Intake and Output
03/02/25 03/03/25 03/04/25
06:59 06:59 06:59
Intake Total 3268.7 / 3300.0 301.3 / 301.3
Output Total 2120 / 2120
Balance 1148.7 / 1180.0 286.3 / 286.3
SaO2 [CPAP/PSV] 99
SaO2 [SIMV] 97
SaO2 91
Nasal Cannula flow liters per 1
minute
Physical Exam
General: Comfortable
HEENT: Normocephalic
Cardiovascular: S1-S2
Respiratory: Clear and Non-Labored Respirations
GI: Soft and Non Distended
Neurology: Awake and Alert
Labs/Micro/Reports
Lab Data
03/03/25 04:00
03/03/25 04:00
Laboratory Results
03/02/25 03/02/25
12:59 18:31
pH 7.46 H 7.40
pCO2 34 L 39
pO2 140 H 179 H
HCO3 24.2 24.2
O2 Delivery Level Not Reportable nasal cannula
[2025-03-03] MEDS: FERRLECIT 110 MG IV (13:06)
--- NOTE | 2025-03-03 15:00 | PTCARENOTE ---
no change in assessment from previous. sitting in chair eating dinner with at bedside. NSR. RA. LR infusing.
--- NOTE | 2025-03-03 20:00 | PTCARENOTE ---
Assumed care of the patient at 1900. Patient OOB to chair, at bedside, AOx3, pain an acceptable level for the patient. NSR on the monitor, rate 80's, VSS, rub auscultated, pulses palpable, + 1 edema, AV wires present, see worklist for setting
details. CTx1 present to -20 cm wall suction, no air leak, tidaling, or crepitus noted, patient with intermittent moist cough, IS encouraged, lungs dim at the bases. Normoactive BS, patient passing flatus, tolerating PO intake, abdomen SNT. Radha
urine, voiding in the urinal, bladder scan per protocol, patient reports no difficulty. MS incision CDI MONUMENT SETTER, R groin dressing CDI no drainage noted. RIJ cordis present and PIVx1, LR @ 50mL/hr maintained. Call duran within reach, patient washed with
CHG wipes and placed into bed, assessment of needs ongoing.
[2025-03-03] MEDS: LIPITOR 10 MG PO (21:33)
[2025-03-03] MEDS: XALATAN OPHTHALMIC SOLUTION 1 DROP BOTH EYES (21:34)
[2025-03-04] VITALS (19 sets, daily range): BP systolic 102–134; BP diastolic 56–91; PULSE 94; O2SAT 92–96; BMI 30.1
--- NOTE | 2025-03-04 | PTCARENOTE ---
Patient placed on O2 while in bed for SpO2 90%, now satting 96% on 2LNC. Intermittent cough, IS encouraged, patient comfortable in bed, endorses mild chest discomfort. VSS. Voided 120 mLs in the urinal, continue to monitor UOP.
[2025-03-04] MEDS: LR IV (00:16)
--- NOTE | 2025-03-04 01:47 | W.PN.CT ---
Today's Communication / Plan
-
-pod #2
-off levo, DCd PA cath
-CT outputs: 2 meds 35/50 in 12/24 hrs
-NSR overnight, no ectopy
-current meds (ASA, Lipitor, Amio, Protonix). Holding BB while on Levo
-encourage IS, OOB
Assessment / Plan
-
- s/p Minimally invasive sternotomy with Surgical aortic valve replacement [29 mm bovine pericardial tissue valve Inspiris Resilia]; LAAE [35 mm clip] by Dr. Ramirez on 03/02/25, pod #2
- intraop DAVI: LVEF preop and postop 65% with no wma.
- he was in an AV paced rhythm postoperatively, then sinus merry high 40s in CVICU
- Bicuspid aortic valve, type I morphology with left right effusion, bulky calcification and severe aortic valve stenosis
- History of bladder cancer- status postresection and chemotherapy 11/2012
- Pulmonary nodules
- Gout
- Hyperlipidemia
- History of skin cancer status post Mohs surgery
- Glaucoma
- Hard of hearing, wears hearing aides b/l
- Preop anemia - Hg 11.7
- Sinus bradycardia 50 bpm preop (not on AVN blocking meds at home)
- Acute on chronic postop blood loss anemia
- Acute postop atelectasis
- Acute postop hypovolemia with subsequnet hypervolemia
Subjective
-
Date of Service: March 04, 2025
Objective Data
-
PT 16.9 Sec (11.4-14.6) H 03/02/25 10:49
INR 1.32 03/02/25 10:49
APTT 33.5 Sec (23.4-35.0) 03/02/25 10:49
Vital Signs
Vital Signs
Temp Pulse Resp BP Pulse Ox
98.2 F 80 18 110/72 96
03/04/25 00:00 03/04/25 00:00 03/04/25 00:00 03/04/25 00:00 03/04/25 00:00
CT Intake/Output/Weight
03/03/25 03/03/25 03/04/25
06:59 18:59 06:59
Intake Total 1559.1 / 3300.0 391.3 / 671.3 280 / 671.3
Output Total 435 / 2120 215 / 370 155 / 370
Balance 1124.1 / 1180.0 176.3 / 301.3 125 / 301.3
SaO2: 96
Physical Exam
-
General: Awake, Oriented and AOx3
Cardiovascular: Regular rate & rhythm, No Murmurs and No Rub
Respiratory: Clear and Equal
Sternum: Stable
Incision: Clean, Dry and Intact
Extremities: Edema +1
Data Reviewed
-
Lab Results: Results Reviewed
Medications: Active Meds Reviewed
Chest X-Ray: Report Reviewed
ECG: Report Reviewed
--- NOTE | 2025-03-04 04:00 | PTCARENOTE ---
VSS, assessment unchanged, patient OOB to void into urinal without difficulty. Sleeping between care.
[2025-03-04 05:07] LABS: Hepatitis C Antibody Negative (Negative)
[2025-03-04] MEDS: TYLENOL 1000 MG PO ×3 (05:17→21:31)
[2025-03-04 05:34] LABS: Hematocrit 27.4 % (39.0-52.0); Hemoglobin 8.9 g/dL (13.0-18.0); Mean Corp Hgb Conc. 32.5 g/dL (33.0-37.0); Mean Corpuscular Hgb 29.4 pg (27.0-31.0); Mean Corpuscular Volume 90.4 fL (80.0-94.0); Platelet Count 151 10^3/uL (130-400); Red Blood Cell Count 3.03 10^6/uL (4.70-6.10); Red Cell Dist. Width 13.6 % (11.5-14.5)
[2025-03-04] MEDS: ROXICODONE 5 MG PO (05:37)
[2025-03-04 05:48] LABS: Blood Urea Nitrogen 36 mg/dl (9-20); Carbon Dioxide 26 mmol/L (22-30); Chloride 101 mmol/L (98-107); Estimated Creatinine Clearance 57 ml/min; Glucose 121 mg/dl (70-99); Magnesium 2.5 mg/dl (1.6-2.3); Potassium 4.6 mmol/L (3.5-5.1); Sodium 136 mmol/L (135-145); eGFR > 60.00
--- NOTE | 2025-03-04 08:21 | W.PN.CD ---
Today's Communication / Plan
-
cont ASA, statin
trend tele
Impression / Plan
-
Impression/Plan: 74 y/o male with a history bladder CA, HLD and bicuspid aortic valve with severe aortic valve stenosis admitted for elective SAVR. S/p Minimally invasive sternotomy with Surgical aortic valve replacement [29 mm bovine pericardial
tissue valve Inspiris Resilia]; LAAE [35 mm clip] by Dr. Ramirez on 03/02/25
#Bicuspid aortic valve with severe
-S/p Minimally invasive sternotomy with Surgical aortic valve replacement [29 mm bovine pericardial tissue valve Inspiris Resilia]; LAAE [35 mm clip] by Dr. Ramirez on 03/02/25
-Postop DAVI with AVR mean gradient 3mm Hg, LAAA no longer visible with no color flow; EF 60-65%
-Rhythm: sinus
-Amio for AFib prophylaxis
-cont ASA 81mg daily
#HLD
-Chronic, stable.
-Continue statin
#SHIRA
-Chronic.
-<50% stenosis on the left.
DATA:
Transthoracic Echocardiogram, 01/21/2025:
CONCLUSIONS
Normal biventricular size and systolic function without regional wall motion
abnormality. LVEF 65-70%.
Mild concentric left ventricular hypertrophy.
Severe aortic stenosis (peak/mean gradient 65/40 mmHg, TAISHA 0.9 cm2, DVI 0.26).
Compared to prior echocardiogram in July 2024, aortic stenosis has
progressed to severe.
Cardiac Catheterization, 12/10/2023:
CONCLUSIONS:
1. Right dominant circulation with no coronary artery disease.
2. Moderate aortic valve stenosis. Aortic valve area 1.19 cm� with a mean gradient of 32.3 mmHg. Stroke-volume = 95 mL, stroke-volume index = 45 mL/m�.
3. Mildly elevated filling pressures (LVEDP = 15 mmHg, PCWP = 16 mmHg at 89.8 kg) with evidence of diastolic dysfunction (A wave to 27 mmHg).
Physical Exam
Vital Signs/Labs
Vital Signs
Temp Pulse Resp BP Pulse Ox
97.7 F 78 16 102/74 97
03/04/25 04:00 03/04/25 04:00 03/04/25 04:00 03/04/25 04:00 03/04/25 04:00
03/03/25 03/04/25 03/05/25
06:59 06:59 06:59
Actual Weight 93 kg 93.9 kg
03/04/25 04:03
03/04/25 04:03
PT 16.9 Sec (11.4-14.6) H 03/02/25 10:49
INR 1.32 03/02/25 10:49
APTT 33.5 Sec (23.4-35.0) 03/02/25 10:49
Magnesium 2.5 mg/dl (1.6-2.3) H 03/04/25 04:03
Physical Exam
Constitutional: No acute distress and Comfortable
EENT: Moist mucous membranes
Cardiovascular: Rhythm & rate is regular, Pedal edema is absent, JVD pressure is normal and Systolic murmur absent
Respiratory: Respiratory effort normal and Lungs clear to auscul.
Neuro/Psych: AO x 3
Data Reviewed
-
Date of Service: March 04, 2025
EKG: Other (Tele: SR 80s)
Labs: Labs Reviewed by me
[2025-03-04] MEDS: LIDOCAINE 4% PATCH 1 PATCH TOPICAL (08:44)
[2025-03-04] MEDS: BACTROBAN 2% OINTMENT 1 APPLIC NASAL ×2 (08:44→21:36)
[2025-03-04] MEDS: LASIX 40 MG IV ×2 (08:45→14:59)
[2025-03-04] MEDS: PROTONIX 40 MG PO (08:45)
[2025-03-04] MEDS: SENOKOT-S 1 TABLET PO ×2 (08:45→21:31)
[2025-03-04] MEDS: MAGNESIUM OXIDE 500 MG PO (08:45)
[2025-03-04] MEDS: NEURONTIN 100 MG PO ×3 (08:45→21:31)
[2025-03-04] MEDS: LOW STRENGTH ASPIRIN 81 MG PO (08:45)
[2025-03-04] MEDS: PACERONE 200 MG PO ×3 (08:45→21:32)
[2025-03-04] MEDS: MUCINEX 600 MG PO ×2 (08:45→21:32)
--- NOTE | 2025-03-04 09:32 | PTCARENOTE ---
assumed care of pt from previous shift RN, sinus rhythm on tele, + peripheral pulses, +1 edema to bilateral hands and feet. AV wire pulled by CT SAM. Mediastinal CT w minimal drainage. Cordis and PIV flush easily. Plan of care reviewed w the pt and
questions encouraged.
--- NOTE | 2025-03-04 11:30 | PTCARENOTE ---
mediastinal CT removed without incident. pt assisted back to chair. Tolerated working w CR.
--- NOTE | 2025-03-04 13:00 | CM ---
Chart reviewed. Patient is OOB sitting in the chair, and friends at bedside. Patient is independent of ADLS, lives with his in a [address], [facility], [facility]. Plan is for the patient to return home with CT Transitional RN. CM to follow
[2025-03-04] MEDS: FERRLECIT 110 MG IV (14:59)
[2025-03-04] MEDS: NSS 500 IV (14:59)
--- NOTE | 2025-03-04 20:00 | PTCARENOTE ---
Assumed care of the patient at 1900. Patient OOB to chair, at bedside, AOx3, drowsy, no c/o pain at this time. NSR on the monitor, heart tones audible, trace to +1 generalized edema, pulses palpable. Lungs dim at the bases, RA, intermittent
nonproductive cough. Good appetite, no BM yet, normoactive bowel sounds, abdomen SNT. Voiding in the urinal without difficulty. All surgical sites intact. Patient helped into bed after CHG cloth bath. WILLIAN landeros, PIVx1, see nursing work list for
additional intervention details.
[2025-03-04] MEDS: LIPITOR 10 MG PO (21:31)
[2025-03-04] MEDS: KCL 20 MEQ PO (21:32)
[2025-03-04] MEDS: XALATAN OPHTHALMIC SOLUTION 1 DROP BOTH EYES (21:37)
[2025-03-04] MEDS: MAGNESIUM OXIDE PO (21:56)
[2025-03-05] VITALS (8 sets, daily range): BP systolic 93–137; BP diastolic 59–74; PULSE 76; O2SAT 96; BMI 29.8
--- NOTE | 2025-03-05 | PTCARENOTE ---
Assessment stable, patient placed on 2LNC for sleeping. Pain controlled, sleeping between care.
--- NOTE | 2025-03-05 04:02 | W.PN.CT ---
Today's Communication / Plan
-
Plan:
-No major issues overnight. Hemodynamically and neurologically intact
-Postop soft BP, improving. BB on hold
-Should be able to resume low dose Toprol XL 12.5 mg QDaily today (HR 70-80's)
-D/C cordis
-Cont. current meds ((ASA, Lipitor, Amio, Protonix, Toprol XL)
-Encourage use of IS
-OOB into chair/Ambulate
-Home later today vs tomorrow
Assessment / Plan
-
- s/p Minimally invasive sternotomy with Surgical aortic valve replacement [29 mm bovine pericardial tissue valve Inspiris Resilia]; LAAE [35 mm clip] by Dr. Ramirez on 03/02/25, pod #3
- intraop DAVI: LVEF preop and postop 65% with no wma.
- he was in an AV paced rhythm postoperatively, then sinus merry high 40s in CVICU
- Bicuspid aortic valve, type I morphology with left right effusion, bulky calcification and severe aortic valve stenosis
- History of bladder cancer- status postresection and chemotherapy 11/2012
- Pulmonary nodules
- Gout
- Hyperlipidemia
- History of skin cancer status post Mohs surgery
- Glaucoma
- Hard of hearing, wears hearing aides b/l
- Preop anemia - Hg 11.7
- Sinus bradycardia 50 bpm preop (not on AVN blocking meds at home)
- Acute on chronic postop blood loss anemia
- Acute postop thrombocytopenia, stable without active bleed
- Acute postop atelectasis
- Acute postop hypovolemia with subsequent hypervolemia
-
Discussed patient care with: Cardiology, Nursing, Respiratory Therapy, Pharmacy and Care Team
Subjective
-
Date of Service: March 05, 2025
Pt c/o mild incisional pain and non-productive cough, otherwise feels well
Objective Data
-
PT 16.9 Sec (11.4-14.6) H 03/02/25 10:49
INR 1.32 03/02/25 10:49
APTT 33.5 Sec (23.4-35.0) 03/02/25 10:49
Vital Signs
Vital Signs
Temp Pulse Resp BP Pulse Ox
98.8 F 70 16 93/59 97
03/04/25 20:00 03/05/25 00:02 03/04/25 20:00 03/05/25 00:02 03/05/25 00:02
CT Intake/Output/Weight
03/04/25 03/04/25 03/05/25
06:59 18:59 06:59
Intake Total 820 / 1211.3 130 / 130
Output Total 535 / 750 1850 / 2290 440 / 2290
Balance 285 / 461.3 -1720 / -2160 -440 / -2160
SaO2: 97 (RA)
Physical Exam
-
General: Awake, Oriented and AOx3
Cardiovascular: Regular rate & rhythm, No Murmurs, No Rub and No Gallop
Respiratory: Decreased Breath Sounds (at bases, otherwise clear)
Sternum: Stable
Incision: Clean, Dry, Intact and Dressing Intact
Extremities: Other (+trace edema)
Data Reviewed
-
Lab Results: Results Reviewed
Medications: Active Meds Reviewed
Chest X-Ray: Report Reviewed and Image Reviewed
ECG: Report Reviewed and Image Reviewed
--- NOTE | 2025-03-05 04:18 | PTCARENOTE ---
No changes in assessment, patient sleeping between care, helped OOB to use the urinal, voiding spontaneously without difficulty.
[2025-03-05 04:21] LABS: Ionized Calcium 1.11 mMOL/L (1.15-1.33)
[2025-03-05 04:27] LABS: Hematocrit 26.9 % (39.0-52.0); Hemoglobin 8.9 g/dL (13.0-18.0); Mean Corp Hgb Conc. 33.1 g/dL (33.0-37.0); Mean Corpuscular Hgb 29.5 pg (27.0-31.0); Mean Corpuscular Volume 89.1 fL (80.0-94.0); Mean Platelet Volume 10.6 fL (7.4-10.4); Platelet Count 148 10^3/uL (130-400); Red Blood Cell Count 3.02 10^6/uL (4.70-6.10); Red Cell Dist. Width 13.5 % (11.5-14.5); White Blood Cell Count 12.1 10^3/uL (4.8-10.8)
[2025-03-05 04:56] LABS: Blood Urea Nitrogen 26 mg/dl (9-20); Carbon Dioxide 30 mmol/L (22-30); Chloride 101 mmol/L (98-107); Estimated Creatinine Clearance 69 ml/min; Glucose 117 mg/dl (70-99); Magnesium 2.3 mg/dl (1.6-2.3); Potassium 4.3 mmol/L (3.5-5.1); Sodium 136 mmol/L (135-145); eGFR > 60.00
[2025-03-05] MEDS: CALCIUM GLUCONATE 290 MG IV (05:29)
[2025-03-05] MEDS: TYLENOL 1000 MG PO ×2 (05:33→13:41)
[2025-03-05] MEDS: PROTONIX 40 MG PO (07:51)
[2025-03-05] MEDS: SENOKOT-S 1 TABLET PO (07:51)
[2025-03-05] MEDS: TOPROL XL 12.5 MG PO (07:52)
[2025-03-05] MEDS: LOW STRENGTH ASPIRIN 81 MG PO (07:52)
[2025-03-05] MEDS: BACTROBAN 2% OINTMENT 1 APPLIC NASAL (07:52)
[2025-03-05] MEDS: MUCINEX 600 MG PO (07:52)
[2025-03-05] MEDS: PACERONE 200 MG PO (07:52)
[2025-03-05] MEDS: NEURONTIN 100 MG PO (07:52)
[2025-03-05] MEDS: NSS IV (07:53)
[2025-03-05] MEDS: LIDOCAINE 4% PATCH TOPICAL (07:53)
--- NOTE | 2025-03-05 08:00 | PTCARENOTE ---
Assumed patient care from nightshift RN. Patient OOB in chair, at bedside, fully alert and oriented, no c/o pain at this time. NSR on the monitor, heart tones audible, trace to +1 generalized edema, pulses palpable. Lungs dim at the bases, RA,
intermittent nonproductive cough. Good appetite, no BM yet, miralax given, normoactive bowel sounds, abdomen SNT. Voiding in the urinal without difficulty. All surgical sites intact. RIJ cordis, PIVx1.
[2025-03-05] MEDS: MIRALAX 17 GRAMS PO (09:08)
--- NOTE | 2025-03-05 09:54 | W.PN.CD ---
Today's Communication / Plan
-
Cont post-op care
Impression / Plan
-
Impression/Plan: 74 y/o male with a history bladder CA, HLD and bicuspid aortic valve with severe aortic valve stenosis admitted for elective SAVR. S/p Minimally invasive sternotomy with Surgical aortic valve replacement [29 mm bovine pericardial
tissue valve Inspiris Resilia]; LAAE [35 mm clip] by Dr. Ramirez on 03/02/25
#Bicuspid aortic valve with severe
-S/p Minimally invasive sternotomy with Surgical aortic valve replacement [29 mm bovine pericardial tissue valve Inspiris Resilia]; LAAE [35 mm clip] by Dr. Ramirez on 03/02/25
-Postop DAVI with AVR mean gradient 3mm Hg, LAAA no longer visible with no color flow; EF 60-65%
-Rhythm: sinus
-Amio for AFib prophylaxis
-cont ASA 81mg daily
- discussed screening of children
#HLD
-Chronic, stable.
-Continue statin
#SHIRA
-Chronic.
-<50% stenosis on the left.
Subjective: feels good hopeful to be d/c
DATA:
Transthoracic Echocardiogram, 01/21/2025:
CONCLUSIONS
Normal biventricular size and systolic function without regional wall motion
abnormality. LVEF 65-70%.
Mild concentric left ventricular hypertrophy.
Severe aortic stenosis (peak/mean gradient 65/40 mmHg, TAISHA 0.9 cm2, DVI 0.26).
Compared to prior echocardiogram in July 2024, aortic stenosis has
progressed to severe.
Cardiac Catheterization, 12/10/2023:
CONCLUSIONS:
1. Right dominant circulation with no coronary artery disease.
2. Moderate aortic valve stenosis. Aortic valve area 1.19 cm� with a mean gradient of 32.3 mmHg. Stroke-volume = 95 mL, stroke-volume index = 45 mL/m�.
3. Mildly elevated filling pressures (LVEDP = 15 mmHg, PCWP = 16 mmHg at 89.8 kg) with evidence of diastolic dysfunction (A wave to 27 mmHg).
Physical Exam
Vital Signs/Labs
Vital Signs
Temp Pulse Resp BP Pulse Ox
98.2 F 83 16 137/72 96
03/05/25 07:49 03/05/25 08:00 03/05/25 07:49 03/05/25 07:52 03/05/25 07:58
03/04/25 03/05/25 03/06/25
06:59 06:59 06:59
Actual Weight 207 lb 0.225 oz 204 lb 5.896 oz
03/05/25 04:03
03/05/25 04:03
PT 16.9 Sec (11.4-14.6) H 03/02/25 10:49
INR 1.32 03/02/25 10:49
APTT 33.5 Sec (23.4-35.0) 03/02/25 10:49
Magnesium 2.3 mg/dl (1.6-2.3) 03/05/25 04:03
Physical Exam
Constitutional: No acute distress and Comfortable
EENT: Anicteric
Cardiovascular: Rhythm & rate is regular and Pedal edema is absent
Respiratory: Respiratory effort normal and Lungs clear to auscul.
GI: Soft
Neuro/Psych: Alert and Oriented
Data Reviewed
-
Date of Service: March 05, 2025
Medical Decision Making: Reviewed Test Results
EKG: Tracing Personally Visualized and interpreted (sr)
Echo: Report Reviewed by me
Labs: Labs Reviewed by me
--- NOTE | 2025-03-05 13:11 | W.DCSUMMARY ---
Discharge Summary
Discharge Data
Date of Admission: 03/02/25
Date of Discharge: 03/05/25
-
Pending Results: No
Hospital Course
Primary care physician: Jennifer Valdez
Outpatient transportation superintendent: Jerome Chao
Inpatient consultants: [facility] Cardiology, pulmonary radiography technician
Procedures:
1. Aortic valve replacement, left atrial appendage clip
Primary Diagnosis:
1. Bicuspid aortic valve with severe aortic stenosis
Secondary Diagnoses:
1. History of bladder cancer status post resection and chemotherapy (2012)
3. Gout
4. Hyperlipidemia
5. History of skin cancer status post Mohs surgery
6. Glaucoma
7. Sinus bradycardia
8. Acute on chronic postop blood loss anemia
9. Acute postop thrombocytopenia, stable without active bleed
10. Acute postop atelectasis
11. Acute postop hypovolemia with subsequent hypervolemia-expected
12. Postoperative small left pleural effusion
HPI: 74-year-old male was electively admitted on 03/02/2025 for aortic valve replacement due to bicuspid aortic valve with severe aortic stenosis.
Hospital course: Patient underwent minimally invasive sternotomy down to the third intercostal space, aortic valve replacement [29 mm bovine pericardial tissue valve], left atrial appendage exclusion #[address] Tremaine Ramirez. For further
operative details please see operative note. Postprocedure DAVI reported an EF of 60 to 65% with AV mean gradient of 3 mmHg. Patient received no intraoperative blood products and returned to CVICU on insulin, and Precedex. Patient was extubated at
1530. He received 750 cc of lactated Ringer's, Levophed, 1 albumin for expected postop hypovolemia. Levophed was weaned off on postoperative day #1. On postoperative day #2, temporary A and B wires were pulled and mediastinal chest tube
discontinued. Right groin suture was removed. Patient received Lasix 40 mg twice daily for diuresis due to hypovolemia. Patient walked in halls with cardiac rehab and deemed steady with ambulation. Right IJ was removed on postoperative day #3.
Chest x-ray with left small pleural effusion. Patient encouraged to continue using incentive spirometer and Acapella to prevent lung expansion for non-productive cough. Mucinex will continue on discharge. Patient experienced no arrhythmias
postoperatively and prophylactic amiodarone was discontinued on discharge. Patient will be followed by transitional care RN and obtain follow-up chest x-ray in 1 week to compare small left pleural effusion. Prescription for as needed Lasix given
with instructions to take if weight gain of more than 2 pounds in 24 hours or 5 pounds in 1 week. Patient instructed to notify his transportation superintendent if a Lasix dose was taken.
Home medication changes:
simvastatin to atorvastatin
Discharge Plan
-
Patient Disposition: Home (Routine Discharge)
Discharge Diagnosis/Procedures: mini AVR #29mm Insoiris (Tissue valve), left atrial appendage clip
Condition: Good
Diet: Low Cholesterol
Activity: No strenuous activity
Driving Restrictions: Not until seen by your Dr
Bathing Restrictions: OK to Shower
Others Tests: CXR in 1 week
Other Services: Cardiac Rehab
Specialty Instructions: Weigh Daily- Call MD for wt gain/loss 3 lbs overnight/5 lbs in 1 week
Activity Restrictions/Additional Instructions:
ACTIVITY:
-No strenuous activity: no heavy lifting, pushing, pulling anything over 15 pounds for one month
-continue to use stairs as tolerated
DRIVING RESTRICTIONS:
-No driving for one month or until approved by your surgeon
WOUND CARE:
-Shower daily. Use soap & water.
-No lotions, creams or powders on incision area.
DIET:
-continue a low fat/low cholesterol diet.
-IF you are diabetic, continue carb controlled diet.
CARDIAC REHAB:
-Please make appointment to start in 5-6 weeks with your local hospital program. (See Cardiac Rehabilitation Discharge Booklet).
SPECIALTY INSTRUCTIONS:
-Weigh yourself daily. Call your physician for any weight gain/loss of 3 lbs overnight or 5 lbs in one week. Call your transportation superintendent if you have taken a dose of furosemide
-REPORT any clicking noise or uneven appearance of your sternum to your surgeon immediately.
-If you smoke, you are instructed to quit. The [facility] smoking hotline phone number is [phone]
Referrals:
CT Transitional Care Nurse [Outside] (The Cardiothoracic Transitional Care Nurse will call you to set up a visit in 1-2 days.)
[facility] [Outside] - 04/06/25 10:00 am
(Cardiac Rehab Orientation appointment is on April 06 at 10am.
The Cardiac Rehab gym is located on the first floor of the [facility].)
Tamara Xavier CRNP [Specified Professional Personl] - 04/19/25 10:00 am
Jennifer Valdez PA [Family Provider] -
Allyssa Plata CRNP [Specified Professional Personl] - 04/06/25 1:30 pm
Prescriptions:
New
acetaminophen 325 mg Tablet
650 mg PO Q4HPRN PRN (Reason: mild pain,headache,temp >101F ) Qty: 0 0RF
atorvastatin 10 mg Tablet
10 mg PO HS Qty: 30 2RF
cyclobenzaprine 10 mg Tablet
5 mg PO Q8HPRN PRN (Reason: muscle spasm) Qty: 10 0RF
gabapentin 100 mg Capsule
100 mg PO TID Qty: 30 0RF
oxycodone 5 mg Tablet
5 mg PO Q4HPRN PRN (Reason: severe pain) Qty: 10 0RF
guaifenesin 600 mg Tablet Extended Release 12hr
600 mg PO Q12 Qty: 14 0RF
metoprolol succinate 25 mg Tablet Extended Release 24 Hr
12.5 mg PO DAILY Qty: 30 2RF
furosemide [Lasix] 20 mg tablet
20 mg PO .daily prn Qty: 10 0RF
Continued
indomethacin 50 mg Capsule
50 mg PO TID PRN (Reason: Gout Flare)
aspirin 81 mg Tablet,Chewable
81 mg PO DAILY
Lumigan 0.01 % Drops
1 drp BOTH EYES HS
Discontinued
simvastatin 20 mg Tablet
20 mg PO Q48H
Discharge Orders:
Discharge Patient (As Directed); Ordered 03/05/25
Ordered By: Natalia Kebede
Care Plan Goals
Care Plan Goals:
Problem: Readiness for enhanced knowledge related to diagnosis and treatment plan
Goal: Understand your diagnosis and treatment plan needs, including medications if applicable.
Instructions: Know your diagnosis, underlying causes and treatment plan options, including medications if applicable. Consult with your health care team to learn about your diagnosis and treatment plan, including medications if applicable.
Discharge Date and Time
Print Language: GERMAN
--- NOTE | 2025-03-05 13:29 | PTCARENOTE ---
Vital signs stable. RIJ cordis discontinued. Frequent IS and ambulation encouraged, walked in hallways, well tolerated. Tolerating meals as well. Acapella provided to patient.
[2025-03-05] MEDS: FERRLECIT 110 MG IV (13:41)
--- NOTE | 2025-03-05 16:39 | PTCARENOTE ---
Patient showered. Discharge instructions read to patient and thoroughly. PIV removed. Brought down to patient vehicle in wheelchair by RN. Discharged @1600
== END 2025-03-05 16:00 | disposition home or self-care (01) | DRG 220 ==
LOC: CVICU 05:34
PROVIDERS: Anesthesiology; Clinical Nurse Specialist Acute Care; Physician Assistant Medical; ADMITTING PHYSICIAN Thoracic Surgery (Cardiothoracic Vascular Surgery); CONSULT PHYSICIAN Internal Medicine; FAMILY PHYSICIAN Physician Assistant Medical; OTHER PHYSICIAN Internal Medicine Cardiovascular Disease
PROC: 02RF08Z Replacement of Aortic Valve with Zooplastic Tissue, Open Approach (ICD-10-PCS; 2025-03-02)
PROC: 5A1221Z Performance of Cardiac Output, Continuous (ICD-10-PCS; 2025-03-02)
PROC: 02L70CK Occlusion of Left Atrial Appendage with Extraluminal Device, Open Approach (ICD-10-PCS; 2025-03-02)
PROC: B24BZZ4 Ultrasonography of Heart with Aorta, Transesophageal (ICD-10-PCS; 2025-03-02)
DX: I35.0 Nonrheumatic aortic (valve) stenosis (principal); D62 Acute posthemorrhagic anemia; J98.11 Atelectasis; J90 Pleural effusion, not elsewhere classified; D69.59 Other secondary thrombocytopenia; E87.70 Fluid overload, unspecified; E86.1 Hypovolemia; R00.1 Bradycardia, unspecified; M10.9 Gout, unspecified; E78.5 Hyperlipidemia, unspecified; H40.9 Unspecified glaucoma; I65.22 Occlusion and stenosis of left carotid artery; R91.8 Other nonspecific abnormal finding of lung field; H91.93 Unspecified hearing loss, bilateral; Z85.51 Personal history of malignant neoplasm of bladder; Z85.828 Personal history of other malignant neoplasm of skin
CPT/HCPCS: 88305; 88311; 36415; 71045; 80048; 80053; 81003; 81015; 82248; 82330; 82565; 82805; 82810; 82947; 82962; 83036; 83735; 84132; 84302; 84520; 85014; 85018; 85025; 85027; 85049; 85610; 85730; 86803; 86850; 86900; 86901; 86920; 87070; 93005; 93312; 93320; 93325; 93880; 94002; J2916; P9045

== ENCOUNTER → 2025-03-11 08:32 | Outpatient (REF) | payer MEDICARE, OTHER, SELFPAY | LOC: RAD 08:32 | PROVIDERS: ATTENDING PHYSICIAN Thoracic Surgery (Cardiothoracic Vascular Surgery); FAMILY PHYSICIAN Physician Assistant Medical | DX: J90 Pleural effusion, not elsewhere classified (principal) | CPT/HCPCS: 71046 ==

== ENCOUNTER → 2025-04-06 08:56 | Outpatient (REF) | payer MEDICARE, OTHER, SELFPAY | LOC: RAD 08:56 | PROVIDERS: ATTENDING PHYSICIAN Physician Assistant Medical | DX: J18.9 Pneumonia, unspecified organism (principal) | CPT/HCPCS: 71046 ==

== ENCOUNTER 2025-04-06 11:08 | Outpatient (RCR) | payer MEDICARE, OTHER, SELFPAY | END 2025-04-06 23:59 | disposition home or self-care (01) | LOC: CRHB 11:08 | PROVIDERS: ATTENDING PHYSICIAN Student in an Organized Health Care Education/Training Program; FAMILY PHYSICIAN Family Medicine | DX: Z95.4 Presence of other heart-valve replacement (principal) | CPT/HCPCS: G0422; G0423 ==

== ENCOUNTER 2025-05-09 08:59 | Outpatient (RCR) | payer MEDICARE, OTHER, SELFPAY ==
[2025-04-20 10:58] LABS: HDL Cholesterol 41 mg/dl; LDL Cholesterol, Calculated 91 mg/dl; Total Cholesterol 150 mg/dl (50-199); Triglyceride 93 mg/dl (10-149); Very Low Density Lipoprotein 18 mg/dl (0-30)
== END 2025-05-09 23:59 | disposition home or self-care (01) ==
LOC: CRHB 08:59
PROVIDERS: ATTENDING PHYSICIAN Student in an Organized Health Care Education/Training Program; FAMILY PHYSICIAN Family Medicine
DX: Z95.4 Presence of other heart-valve replacement (principal)
CPT/HCPCS: 36415; 80061; G0422; G0423

== ENCOUNTER → 2025-05-16 10:17 | Outpatient (REF) | payer MEDICARE, OTHER, SELFPAY | LOC: RCS 10:17 | PROVIDERS: ATTENDING PHYSICIAN Nurse Practitioner; FAMILY PHYSICIAN Physician Assistant Medical | DX: Q23.1 Congenital insufficiency of aortic valve (principal) | CPT/HCPCS: 93306 ==

== ENCOUNTER 2025-06-08 08:45 | Outpatient (RCR) | payer MEDICARE, OTHER, SELFPAY | END 2025-06-08 23:59 | disposition home or self-care (01) | LOC: CRHB 08:45 | PROVIDERS: ATTENDING PHYSICIAN Student in an Organized Health Care Education/Training Program; FAMILY PHYSICIAN Family Medicine | DX: Z95.4 Presence of other heart-valve replacement (principal) | CPT/HCPCS: G0422; G0423 ==

== ENCOUNTER 2025-07-01 08:52 | Outpatient (RCR) | payer MEDICARE, OTHER, SELFPAY | END 2025-07-01 23:59 | disposition home or self-care (01) | LOC: CRHB 08:52 | PROVIDERS: ATTENDING PHYSICIAN Student in an Organized Health Care Education/Training Program; FAMILY PHYSICIAN Family Medicine | DX: Z95.4 Presence of other heart-valve replacement (principal) | CPT/HCPCS: 93797; 93798; G0422; G0423 ==

== ENCOUNTER 2025-07-27 10:24 | Outpatient (RCR) | payer MEDICARE, OTHER, SELFPAY | END 2025-07-27 11:23 | disposition home or self-care (01) | LOC: CRHB 10:24 | PROVIDERS: ATTENDING PHYSICIAN Student in an Organized Health Care Education/Training Program; FAMILY PHYSICIAN Family Medicine | DX: Z95.4 Presence of other heart-valve replacement (principal) | CPT/HCPCS: G0422; G0423 ==